=== PATIENT | female | born 1985 | race American Indian/Alaskan Native ===

== ENCOUNTER 2018-08-24 20:19 | Emergency (ER) | payer SELFPAY ==
[2018-08-24 21:02] VITALS: BP 119/85
[2018-08-24 21:38] LABS: Basophils # (Auto) 0.1 K/mm3 (0.0-0.1); Basophils % (Auto) 0.9 % (0.0-1.8); Eosinophils # (Auto) 0.2 K/mm3 (0.0-0.4); Eosinophils % (Auto) 2.3 % (0.0-4.3); Hematocrit 41.2 % (30.3-42.9); Hemoglobin 13.8 gm/dl (10.1-14.3); Lymphocytes # (Auto) 4.1 K/mm3 (1.2-5.4); Lymphocytes % (Auto) 37.8 % (13.4-35.0); Mean Corpuscular HGB Conc 34 % (30-34); Mean Corpuscular Hemoglobin 29 pg (28-32); Mean Corpuscular Volume 86 fl (79-97); Monocytes # (Auto) 0.6 K/mm3 (0.0-0.8); Monocytes % (Auto) 5.2 % (0.0-7.3); Platelet Count 461 K/mm3 (140-440); Red Blood Count 4.79 M/mm3 (3.65-5.03); Red Cell Distribution Width 15.6 % (13.2-15.2)
[2018-08-24 22:08] LABS: Alanine Aminotransferase 14 units/L (7-56); Albumin 4.2 g/dL (3.9-5); BUN/Creatinine Ratio 17; Blood Urea Nitrogen 12 mg/dL (7-17); Calcium 9.1 mg/dL (8.4-10.2); Hemolysis Index 6; Lipase 19 units/L (13-60)
[2018-08-24 23:08] LABS: Bilirubin,Urine NEG (Negative); Blood,Urine NEG (Negative); Color,Urine Yellow (Yellow); Mucus,Urine 1+ /HPF; Protein,Urine <15 mg/dL mg/dL (Negative); Urobilinogen,Urine < 2.0 mg/dL (<2.0)
[2018-08-25] MEDS ORDERED: BENTYL IM ONE (00:28)
[2018-08-25] MEDS ORDERED: SUBLIMAZE IV ONE (00:28)
[2018-08-25] MEDS ORDERED: ZOFRAN IV ONE (00:28)
--- NOTE | 2018-08-25 00:34 | Emergency Department Report ---
HPI - General Chief Complaint: Abdominal Pain Time Seen by Provider: 08/25/18 00:26 - HPI HPI: Room 29 The patient is a 33-year-old female presenting with a chief complaint of abdominal pain. The patient states she's had intermittent right-sided abdominal pain occasionally radiating to the left side for the past 2 years. Patient states she has not sought medical attention for this pain. Patient states she has not noticed any relationship with meals. The patient states Advil does not help. The patient is to nausea but denies vomiting or diarrhea. Patient denies fever, dysuria or hematuria. Patient denies vaginal discharge. The patient gives her pain a score of "15/10." Location: [See above] Duration: Intermittent 2 years Quality: Pain Severity: "15/10" Modifying factors: [see above] Context: [see above] Mode of transportation: [not driving] ED Past Medical Hx - Past Medical History Previous Medical History?: No Additional medical history: gest DM - Surgical History Past Surgical History?: Yes Additional Surgical History: breast reduction - Family History Family history: no significant - Social History Smoking Status: Never Smoker Substance Use Type: None (denies illicit drug use) - Medications Home Medications: Home Medications Medication Instructions Recorded Confirmed Last Taken Type Pnv,Calcium 72/Iron,Carb/Folic 1 tab PO DAILY 02/05/16 05/24/16 02/04/16 21:00 History [ Plus Iron Tablet] 1 Ibuprofen [Motrin 800 MG tab] 800 mg PO Q8HR PRN #30 tablet 05/25/16 Unknown Rx Vit-Fe Fumar-FA [ 1 tab PO QDAY #30 tablet 05/25/16 Unknown Rx Vitamin] oxyCODONE /ACETAMINOPHEN [Percocet 1 tab PO Q6HR PRN #30 tablet 05/25/16 Unknown Rx 5/325] Famotidine [Pepcid] 20 mg PO BID #20 tablet 08/25/18 Unknown Rx HYDROcodone/APAP 5-325 [Bighorn 1 - 2 each PO Q6HR PRN #14 tablet 08/25/18 Unknown Rx 5/325] Promethazine [Phenergan TAB] 25 mg PO Q6HR PRN #20 tab 08/25/18 Unknown Rx ED Review of Systems ROS: Stated complaint: ABD PAIN Other details as noted in HPI Constitutional: denies: fever Eyes: denies: eye pain ENT: denies: throat pain Respiratory: no symptoms reported Cardiovascular: denies: chest pain Endocrine: no symptoms reported Gastrointestinal: abdominal pain, nausea, vomiting. denies: diarrhea Genitourinary: denies: dysuria, hematuria, discharge Musculoskeletal: denies: back pain Neurological: denies: headache Physical Exam - Physical Exam Vital Signs: Vital Signs 08/24/18 20:57 Temperature 97.8 F Pulse Rate 80 Respiratory 15 Rate Blood Pressure 119/85 O2 Sat by Pulse 99 Oximetry Physical Exam: GENERAL: The patient is well-developed well-nourished female sitting on stretcher not appearing to be in acute distress. [] HEENT: Normocephalic. Atraumatic. Extraocular motions are intact. Patient has moist mucous membranes. NECK: Supple. Trachea midline CHEST/LUNGS: Clear to auscultation. There is no respiratory distress noted. HEART/CARDIOVASCULAR: Regular. There is no tachycardia. There is no gallop rub or murmur. ABDOMEN: Abdomen is soft, with tenderness to palpation in the right upper quadrant, right lower quadrant and suprapubic region. There is no rebound or guarding. Patient has normal bowel sounds. There is no abdominal distention. SKIN: There is no rash. There is no edema. There is no diaphoresis. NEURO: The patient is awake, alert, and oriented. The patient is cooperative. The patient has normal speech MUSCULOSKELETAL: There is no evidence of acute injury. ED Course Vital Signs 08/24/18 20:57 Temperature 97.8 F Pulse Rate 80 Respiratory 15 Rate Blood Pressure 119/85 O2 Sat by Pulse 99 Oximetry ED Medical Decision Making - Lab Data Result diagrams: 08/24/18 21:10 08/24/18 21:10 Laboratory Tests 08/24/18 08/24/18 08/24/18 21:10 21:10 Unknown WBC 10.9 RBC 4.79 Hgb 13.8 Hct 41.2 MCV 86 MCH 29 MCHC 34 RDW 15.6 H Plt Count 461 H Lymph % (Auto) 37.8 H Barry % (Auto) 5.2 Eos % (Auto) 2.3 Baso % (Auto) 0.9 Lymph # 4.1 Barry # 0.6 Eos # 0.2 Baso # 0.1 Seg Neutrophils % 53.8 Seg Neutrophils # 5.8 Sodium 137 Potassium 3.8 Chloride 101.3 Carbon Dioxide 24 Anion Gap 16 BUN 12 Creatinine 0.7 Estimated GFR > 60 BUN/Creatinine Ratio 17 Glucose 109 H Calcium 9.1 Total Bilirubin 0.40 AST 20 ALT 14 Alkaline Phosphatase 72 Total Protein 8.1 Albumin 4.2 Albumin/Globulin Ratio 1.1 Lipase 19 Urine Color Yellow Urine Turbidity Slightly-cloudy Urine pH 5.0 Ur Specific [place] 1.030 Urine Protein <15 mg/dl Urine Glucose (UA) Neg Urine Ketones Neg Urine Blood Neg Urine Nitrite Neg Urine Bilirubin Neg Urine Urobilinogen < 2.0 Ur Leukocyte Esterase Mod Urine WBC (Auto) 4.0 Urine RBC (Auto) 3.0 U Epithel Cells (Auto) 9.0 Urine Mucus 1+ - Radiology Data Radiology results: report reviewed (CT abdomen and pelvis), image reviewed (CT abdomen and pelvis) [facility] [address] [place] [address] Cat Scan Report Signed Patient: PONCE KELLY MR#: [id number] : 1985 Acct:[id number] Age/Sex: 33 / F ADM Date: 08/24/18 Loc: ED Attending Dr: Ordering Physician: MARGOT HOLCOMB MD Date of Service: 08/25/18 Procedure(s): CT abdomen pelvis w con Accession Number(s): [id number] cc: MARGOT HOLCOMB MD FINAL REPORT EXAM: CT ABDOMEN PELVIS W CON HISTORY: RUQ abd pain, RUQ/RLQ/Suprapubic tenderness TECHNIQUE: Dynamic helical CT scan through the abdomen and pelvis during and again after intravenous injection of iodinated contrast. Images are reconstructed in the sagittal and coronal planes. Oral contrast was not given. PRIORS: None. FINDINGS: The lung bases are clear. The liver, gallbladder, pancreas, spleen and adrenal glands appear normal. The right kidney appears normal. There are 2 cysts in the left kidney measuring five and 10 mm respectively. The pelvic organs appear grossly normal. The stomach appears grossly within normal limits. There are no abnormally dilated loops of bowel or acute inflammatory changes. A normal-appearing appendix is identified. The abdominal aorta has a normal diameter. The bones are unremarkable for age. There is a small umbilical hernia containing fat. IMPRESSION: 1. Two small left renal cysts 2. No acute findings in the abdomen/pelvis 3. Small umbilical hernia Transcribed By: MLDorinda Dictated By: MIREYA BONNER MD Electronically Authenticated By: MIREYA BONNER MD Signed Date/Time: 08/25/18332 DD/DT: 332 TD/TT: 08/25/18332 - Differential Diagnosis cholelithiasis, renal colic, appendicitis GERD, pericarditis, peptic ulcer Critical care attestation.: If time is entered above; I have spent that time in minutes in the direct care of this critically ill patient, excluding procedure time. ED Disposition Clinical Impression: Abdominal pain, Umbilical hernia Disposition: TO HOME OR SELFCARE Is pt being admited?: No Does the pt Need Aspirin: No Condition: Stable Instructions: Abdominal Pain (ED) Additional Instructions: Return to the emergency department immediately should you develop worsening symptoms, fever, inability to tolerate food or liquid or any other concerns. 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 Please follow-up with him for further evaluation) Time of Disposition: 03:36
[2018-08-25 01:14] LABS: HCG Qualitative,Urine Negative (Negative)
--- NOTE | 2018-08-25 03:31 | Cat Scan Report ---
FINAL REPORT EXAM: CT ABDOMEN PELVIS W CON HISTORY: RUQ abd pain, RUQ/RLQ/Suprapubic tenderness TECHNIQUE: Dynamic helical CT scan through the abdomen and pelvis during and again after intravenous injection of iodinated contrast. Images are reconstructed in the sagittal and coronal planes. Oral contrast was not given. PRIORS: None. FINDINGS: The lung bases are clear. The liver, gallbladder, pancreas, spleen and adrenal glands appear normal. The right kidney appears normal. There are 2 cysts in the left kidney measuring five and 10 mm respectively. The pelvic organs appear grossly normal. The stomach appears grossly within normal limits. There are no abnormally dilated loops of bowel or acute inflammatory changes. A normal-appearing appendix is identified. The abdominal aorta has a normal diameter. The bones are unremarkable for age. There is a small umbilical hernia containing fat. IMPRESSION: 1. Two small left renal cysts 2. No acute findings in the abdomen/pelvis 3. Small umbilical hernia
== END 2018-08-25 03:52 | disposition home or self-care (01) ==
LOC: ED 20:19
DX: K42.9 Umbilical hernia without obstruction or gangrene (principal); Z88.8 Allergy status to other drugs, medicaments and biological substances
CPT/HCPCS: 36415; 74177; 80053; 81001; 81025; 83690; 85025; 96372; 96374; 96375; 99284; J0500; J2405; J3010; Q9967